=== PATIENT | female | born 1985 | race Hispanic/Latino ===

== ENCOUNTER 2016-12-26 19:08 | Emergency (ER) | payer MEDICAID ==
[~2016-12-26] VITALS: Ht 157.5 cm; Wt 94.2 kg
[~2016-12-26 19:08] MED LIST: AMOXICILLIN500 MG PO; SERTRALINE HCL25 MG PO
[2016-12-26] MEDS ORDERED: TRAMADOL HCL50 MG PO (19:20)
[2016-12-26] MEDS ORDERED: DIPHENHYDRAM50 M2 PO (19:36)
[2016-12-26] MEDS ORDERED: ZOLOFT25 MG PO (19:36)
[2016-12-26 19:50] VITALS: BP 122/78
== END 2016-12-26 19:50 | disposition home or self-care (01) | DRG 607 ==
LOC: ED 19:08
DX: L29.9 Pruritus, unspecified (principal); F41.9 Anxiety disorder, unspecified; F17.200 Nicotine dependence, unspecified, uncomplicated